=== PATIENT | female | born 1960 | race Asian ===

== ENCOUNTER → 2018-02-03 | Outpatient (CLI) | payer BC | END | disposition home or self-care (01) | LOC: CT 13:52 | DX: I25.10 Atherosclerotic heart disease of native coronary artery without angina pectoris (principal); R91.8 Other nonspecific abnormal finding of lung field; R93.8 Abnormal findings on diagnostic imaging of other specified body structures | CPT/HCPCS: 71250 ==

== ENCOUNTER → 2021-01-17 | Outpatient (CLI) | payer BC ==
[2015-08-13 16:10] VITALS: BP 120/78
--- NOTE | 2021-01-18 08:47 | KCIC ---
EXAM: Lumbar spine, flexion and extension. HISTORY: Pain. COMPARISON: None. FINDINGS: 5 views of the lumbar spine are obtained. There is no listhesis. The vertebral bodies are n ormal in height. There is multilevel endplate remodeling. There is facet arthropathy predominantly at the lumbosacral junction. IMPRESSION: Multilevel degenerative change, primarily at the lumbosacral junction. No acute osseous f inding. Electronically signed by: Meghana Menendez MD (01/18/2021 8:44 AM) [facility]
== END ==
LOC: KCIC 15:23
PROVIDERS: ATTEND Family Medicine
DX: M47.817 Spondylosis without myelopathy or radiculopathy, lumbosacral region (principal)
CPT/HCPCS: 72110

== ENCOUNTER → 2021-03-26 | Outpatient (CLI) | payer BC ==
[2015-08-13 16:10] VITALS: BP 120/78
--- NOTE | 2021-03-26 09:51 | RAD ---
EXAM: Lumbar spine MRI without contrast. HISTORY: Radiculopathy. TECHNIQUE: Multiplanar, multisequence magnetic resonance imaging of the lumbar spine was performed wi thout contrast. COMPARISON: None. FINDINGS: There is mild lumbar scoliosis. There is no listhesis. There is disc desiccation at L3-L4 a nd L4-L5. There are few osseous hemangiomas. There is no suspicious osseous lesion. There is no acute or subacute fracture. The conus terminates at T12. At L1-L2 and L2-L3, there is no stenosis. At L3-L4, there is a shallow left foraminal to extra foraminal disc protrusion and annular tear super imposed on a disc bulge and endplate remodeling. There is mild left greater than right foraminal sten osis with abutment of the exiting left L3 nerve root. There is mild central canal stenosis. At L4-L5, there is a shallow left lateral recess to foraminal disc protrusion and annular tears to pr oposed on a disc bulge and endplate remodeling. There is mild left greater than right foraminal steno sis with abutment the exiting left L4 nerve root. There is narrowing of the left lateral recess and a butment the traversing left L5 nerve root. There is minimal central canal stenosis. At L5-S1, there is no stenosis. IMPRESSION: Degenerative change involving the lumbar spine, described in detail above. This is associ ated with mild left greater than right foraminal stenosis and abutment of the exiting left L3 nerve r oot and mild central canal stenosis at L3-L4, and mild left greater than right foraminal stenosis wit h abutment the exiting left L4 nerve root and narrowing of the left lateral recess with abutment the traversing left L5 nerve root and minimal central canal stenosis at L4-L5. Electronically signed by: Meghana Menendez MD (03/26/2021 9:49 AM) [id number]
== END ==
LOC: MRI 08:30
PROVIDERS: ATTEND Family Medicine
DX: M47.26 Other spondylosis with radiculopathy, lumbar region (principal); M51.16 Intervertebral disc disorders with radiculopathy, lumbar region; M48.062 Spinal stenosis, lumbar region with neurogenic claudication
CPT/HCPCS: 72148

== ENCOUNTER → 2021-10-20 | Outpatient (CLI) | payer BC ==
[2015-08-13 16:10] VITALS: BP 120/78
--- NOTE | 2021-10-20 11:08 | RAD ---
EXAM: Chest CT without intravenous contrast. HISTORY: Pulmonary nodule. TECHNIQUE: Computed tomographic images of the chest were obtained without contrast. Multiplanar refor matting was performed. *One or more of the following individualized dose reduction techniques were utilized for this examina tion: 1. Automated exposure control. 2. Adjustment of the mA and/or kV according to patient size. 3. Use of iterative reconstruction technique. COMPARISON: 02/03/2018. FINDINGS: There is mild cardiomegaly. There is calcified atherosclerotic plaque involving the coronar y arteries. There is no lymphadenopathy. There is a suspected benign calcified nodule involving the i nferior left thyroid lobe. There is no pneumothorax or pleural effusion. There is no infiltrate. There is mild biapical pleural- parenchymal scarring. There are a few calcified granulomas. There is left lower lobe and lingular ate lectasis. There is a 4 mm pleural-based nodule within the lateral right lower lobe (series 3, image 178). There is a 4 mm nodule within the anterior right lower lobe (series 3, image 218). There is a 4 mm pleural -based nodule within the posterior right lower lobe (series 3, image 236). There is a 6 mm nodule wit hin the anterior right middle lobe (series 3, image 210). There is a 3 mm pleural-based nodule within the lateral right middle lobe (series 3, image 186). There is a 6 mm nodule along the left pleural f issure (series 3, image 181). There is medial right middle lobe pleural parenchymal scarring. There is no acute finding involving the upper abdomen. There is no acute or suspicious osseous findin g. IMPRESSION: 1. Multiple bilateral pleural nodules measuring up to 6 mm, several which are slightly increased in s ize compared to the prior study. The slow interval change favors benignity; however, continued follow -up is recommended given the size and multiplicity of these nodules. Lung-RADS Category 2: CT follow- up in 12 months is recommended. 2. No acute pulmonary finding. Electronically signed by: Meghana Menendez MD (10/20/2021 11:05 AM) [id number]
== END ==
LOC: CT 10:16
PROVIDERS: ATTEND Family Medicine
DX: R91.8 Other nonspecific abnormal finding of lung field (principal); I25.10 Atherosclerotic heart disease of native coronary artery without angina pectoris; J98.11 Atelectasis; J84.10 Pulmonary fibrosis, unspecified
CPT/HCPCS: 71250

== ENCOUNTER → 2021-11-14 | Outpatient (CLI) | payer BC ==
[2015-08-13 16:10] VITALS: BP 120/78
[~2021-11-14] MED LIST: REGADENOSON 0.4 MG/5 ML DISP.SYRIN. IV ONE
--- NOTE | 2021-11-14 13:41 | RAD ---
MR#: [id number] Date of Study: 11/14/2021 Ordering Physician: OLIVIA RED, Referring Physician: JASS WILLIS Tech: TRISTIAN Espinoza, OMAYRA (R) (N) APPROVED REPORT Test Type: Pharmacological Stress Nurse/Tech: Lesa Love R.N. Test Indications: chest pressure Cardiac History: No known cardiac Medications: Accupril, Accupril, See Electronic Medical Record Medical History: See Electronic Medical Record Resting ECG: SB w/inverted T wave in leads AVR,AVL, V1,V2 Resting Heart Rate: 56 bpm Resting Blood Pressure: 173/77mmHg Pretest Chest Pain: No chest pain Nurse/Tech Notes S1S2, lungs CTA Consent: The procedure was explained to the patient in lay terms. Informed consent was witnessed. Lei eout was entered into [employer]. History and Stress Test performed by TRISTIAN Espinoza, OMAYRA (R) (N) Pharm. Details Pharmacologic stress testing was performed using 0.4mg per 5ml of regadenoson given intravenously ove r 7-10 seconds. Stress Symptoms SOA, stomach cramps, tired POST EXERCISE Reason for Termination: Infusion complete Max HR: 78 bpm Max Blood Pressure: 175/69mmHg Blood Pressure response to exercise: Normal blood pressure response during stress. Heart Rate response to exercise: wnl Chest Pain: No. Arrhythmia: No. ST Change: No. INTERPRETATION Stress EKG Conclusion: The resting EKG shows a sinus rhythm with mild nonspecific ST-T wave changes. The stress EKG shows no significant changes from baseline. No EKG evidence of stress-induced ischemia. Imaging Protocol IMAGE PROTOCOL: Rest Tc-99m/stress Tc-99m 1 day Rest: Stress: Viability: Radiopharm.Tc99m NptxukycuNy66l Sestamibi Dose9.9mCi 33mCi Img Date 11/14/2021 11/14/2021 Inj-Img Ssqv50ycx. 60min. Rest Admin Site:IV - Right AntecubitalAdministrator:RT Katelyn (R)(N) Stress Admin Site: IV - Right AntecubitalAdministrator: Denton Morales, RT (R)(N) STRESS DATA End Diast. Vol.83.0mlLVEDV index BSA58.0ml End Syst. Vol.26.0mlLVESV index BSA18.0ml Myocardial Ajwu466.0gEject. Uoqaxscl30.0% Stress Scores Regional WT1.00Summed WT2.00 Regional WM0.00Summed WM2.00 LV Perfusion The stress scans showed no significant defects. The rest scans showed no significant defects. Nuclear imaging shows no reversible ischemia or infarct. Wall Motion LV systolic function is intact with an ejection fraction of greater than 75%. LV Perf. Quant 17 Seg. SSS0.00 17 Seg. SRS0.00 17 Seg. SDS0.00 Stress Defect Extent (% LAD)0.00Rest Defect Extent (% LAD)0.00Rev. Defect Extent (% LAD)0.00 Stress Defect Extent (% LCX) 0.00Rest Defect Extent (% LCX)0.00Rev. Defect Extent (% LCX)0.00 Stress Defect Extent (% RCA)0.00Rest Defect Extent (% RCA)0.00Rev. Defect Extent (% RCA)0.00 Stress Defect Extent (% MIRNA)0.00Rest Defect Extent (% MIRNA)0.00Rev. Defect Extent (% MIRNA)0.00 Conclusion 1. Mildly abnormal baseline EKG but no EKG evidence of stress-induced ischemia. 2. Nuclear imaging shows no reversible ischemia or infarct. 3. Intact LV systolic function with an ejection fraction of greater than 75%. 4. Low risk Lexiscan nuclear stress test. Signed by : Olivia Red MD Electronically Approved : 11/14/2021 13:40:56
--- NOTE | 2021-11-14 15:19 | CARD ---
MR#: [id number] Date of Study: 11/14/2021 Ordering Physician: OLIVIA RED, Referring Physician: OLIVIA RED, Tech: Rony Carranza [facility] APPROVED REPORT EXAM: Two-dimensional and M-mode echocardiogram with Doppler and color Doppler. Other Information Quality : GoodHR: 63bpm Rhythm : NSR INDICATION Chest Pain Murmur 2D DIMENSIONS Left Atrium(2D)3.4 (1.6-4.0cm)IVSd1.0 (0.7-1.1cm) Aortic Root(2D)2.9 (2.0-3.7cm)LVDd4.3 (3.9-5.9cm) LVOT Diameter1.8 (1.8-2.4cm)PWd0.9 (0.7-1.1cm) LA Yrltdy77 (18-58mL)LVDs2.3 (2.5-4.0cm) FS (%) 45.2 %SV63.2 ml Aortic Valve AoV Peak José.158.9cm/sAoV VTI31.9cm AO Peak GR.10.1mmHgLVOT Peak José.108.5cm/s LVOT VTI 22.09cmAO Mean GR.6mmHg TRACE (VMAX)1.66wf6WTS (VTI)1.67cm2 AI P 1/2 Wvfl685pw Mitral Valve MV E Wmoxcoih14.3cm/sMV DECEL BBEE976ih MV A Dxulquuv878.6cm/sMV TNI52eb E/A Ratio0.7MVA (PHT)2.47cm2 TDI E/Lateral E'13.4E/Medial E'13.1 Pulmonary Valve PV Peak Xvtwexoe779.9cm/sPV Peak Grad.4mmHg Tricuspid Valve TR P. Urkwxgtb941xs/sTR Peak Gr.25mmHg Pulmonary Vein S1 Odbqyqqp33.3cm/sD2 Mzabujmw56.9cm/s LEFT VENTRICLE The left ventricle is normal size. There is normal left ventricular wall thickness. The left ventricu lar systolic function is normal and the ejection fraction is within normal range. LV ejection fractio n of 55 to 60%. There is normal LV segmental wall motion. Transmitral Doppler flow pattern is Grade I -abnormal relaxation pattern. No left ventricle thrombus noted on this study. There is no ventricular septal defect visualized. There is no left ventricular aneurysm. There is no mass noted in the left ventricle. RIGHT VENTRICLE The right ventricle is normal size. There is normal right ventricular wall thickness. The right ventr icular systolic function is normal. ATRIA The left atrium is borderline dilated. The right atrium size is normal. The interatrial septum is int act with no evidence for an atrial septal defect or patent foramen ovale as noted on 2-D or Doppler i maging. AORTIC VALVE The aortic valve is mildly thickened but opens well. Doppler and Color Flow revealed mild aortic regu rgitation. There is no significant aortic valvular stenosis. There is no aortic valvular vegetation. MITRAL VALVE The mitral valve is thickened but opens well. There is no evidence of mitral valve prolapse. There is no mitral valve stenosis. Doppler and Color-flow revealed mild mitral regurgitation. TRICUSPID VALVE The tricuspid valve is normal in structure and function. Doppler and Color Flow revealed trace tricus pid regurgitation. There is no tricuspid valve prolapse or vegetation. There is no tricuspid valve st enosis. PULMONIC VALVE The pulmonary valve is normal in structure and function. Doppler and Color Flow revealed no pulmonic valvular regurgitation. There is no pulmonic valvular stenosis. GREAT VESSELS The aortic root is normal in size. The ascending aorta is normal in size. The pulmonary artery is nor mal. The IVC is normal in size and collapses >50% with inspiration. PERICARDIAL EFFUSION There is no pleural effusion. There is no evidence of significant pericardial effusion. Critical Notification Critical Value: No <Conclusion> The left ventricle is normal size. The left ventricular systolic function is normal and the ejection fraction is within normal range. LV ejection fraction of 55 to 60%. Doppler and Color Flow revealed mild aortic regurgitation. There is no significant aortic valvular stenosis. Doppler and Color-flow revealed mild mitral regurgitation. Doppler and Color Flow revealed trace tricuspid regurgitation. Signed by : Olivia Red MD Electronically Approved : 11/14/2021 15:18:44
== END ==
LOC: NM 08:04
PROVIDERS: ATTEND Internal Medicine Cardiovascular Disease
DX: I08.0 Rheumatic disorders of both mitral and aortic valves (principal); R01.1 Cardiac murmur, unspecified; R94.31 Abnormal electrocardiogram [ECG] [EKG]
CPT/HCPCS: 78452; 93017; 93306; A9500; J2785; C8929